=== PATIENT | female | born 1960 | race Hispanic/Latino ===

== ENCOUNTER → 2022-03-31 | Outpatient (CLI) | payer MEDICARE | END | disposition home or self-care (01) | LOC: RAH 08:56 | PROVIDERS: ATTEND Physical Medicine & Rehabilitation | DX: M54.16 Radiculopathy, lumbar region (principal) | CPT/HCPCS: 72195 ==

== ENCOUNTER → 2022-05-29 | Outpatient (CLI) | payer MEDICARE | END | disposition home or self-care (01) | LOC: RAH 13:10 | PROVIDERS: ATTEND Physical Medicine & Rehabilitation | DX: Q76.49 Other congenital malformations of spine, not associated with scoliosis (principal) | CPT/HCPCS: 78306; A9503 ==